=== PATIENT | female | born 1955 | race Two or more races ===

== ENCOUNTER 2018-06-19 15:42 | Emergency (ER) | payer MEDICAID ==
[~2018-06-19] VITALS: Ht 149.9 cm; Wt 116.6 kg
[2018-06-19 16:05] VITALS: BP 161/60
[2018-06-19] MEDS ORDERED: cefTRIAXone SOD 1,000 MG VL IM ONE (16:30)
== END 2018-06-19 18:19 | disposition home or self-care (01) ==
LOC: ER 15:50
DX: J40 Bronchitis, not specified as acute or chronic (principal); I10 Essential (primary) hypertension
CPT/HCPCS: 71045

== ENCOUNTER 2021-02-25 19:11 | Emergency (ER) | payer MEDICAID ==
[~2021-02-25] VITALS: Ht 149.9 cm; Wt 114.3 kg
[2021-02-25 19:21] VITALS: BP 187/65
== END 2021-02-26 00:38 | disposition home or self-care (01) ==
LOC: ER 19:12
DX: J02.9 Acute pharyngitis, unspecified (principal); E11.9 Type 2 diabetes mellitus without complications; E78.5 Hyperlipidemia, unspecified; I10 Essential (primary) hypertension
CPT/HCPCS: 71045